=== PATIENT | female | born 1955 | race African-American/Black ===

== ENCOUNTER 2017-06-28 12:02 | Emergency (ER) | payer OTHER ==
[2017-06-28] MEDS: ACETAMINOPHEN 325 MG TAB PO (14:12)
[2017-06-28] MEDS: SODIUM CHLORIDE 0.9% 1L BAG IV* (14:12)
[2017-06-28 14:32] LABS: ADD MAN DIFF? NO
[2017-06-28 14:35] LABS: ABNORMAL IP MESSAGE 1; BASOPHIL # 0.1 10^3/ul (0.0-0.1); BASOPHILS % 1.5 % (0.0-2.0); EOSINOPHILS % 0.2 % (0.0-7.0); HEMOGLOBIN 7.1 g/dl (12.0-16.0); LYMPHOCYTES # 0.9 10^3/ul (0.8-2.9); LYMPHOCYTES % 19.7 % (15.0-51.0); MEAN CORPUSCULAR HGB CONC 27.3 g/dl (32.0-37.0); MEAN PLATELET VOLUME 10.3 fl (7.4-10.4); MONOCYTE # 0.7 10^3/ul (0.3-0.9); MONOCYTES % 15.3 % (0.0-11.0); NEUTROPHIL # 2.9 10^3/ul (1.6-7.5); NEUTROPHILS % 62.9 % (39.0-77.0); PLATELET COUNT 331 10^3/UL (140-415); RED BLOOD COUNT 3.94 10^6/ul (4.20-5.40); RED CELL DISTRIBUTION WIDTH 18.3 % (11.5-14.5)
[2017-06-28 14:35] LABS: WHITE BLOOD COUNT 4.6 10^3/ul (4.8-10.8)
[2017-06-28 14:38] LABS: POSITIVE DIFF @See below
[2017-06-28 14:51] LABS: LACTIC ACID 1.8 mmol/L (0.5-2.0)
[2017-06-28 14:54] LABS: ALANINE AMINOTRANSFERASE 35 IU/L (13-69); ALBUMIN 4.7 g/dl (3.3-4.9); ALBUMIN/GLOBULIN RATIO 1.17; ALKALINE PHOSPHATASE 99 IU/L (42-121); ANION GAP 20 (8-16); ASPARTATE AMINO TRANSFERASE 58 IU/L (15-46); BILIRUBIN,INDIRECT 0.2 mg/dl (0-1.1); BILIRUBIN,TOTAL 0.2 mg/dl (0.2-1.3); BLOOD UREA NITROGEN 14 mg/dl (7-20); CALCIUM 9.3 mg/dl (8.4-10.2); CARBON DIOXIDE 21 mmol/L (21-31); CHLORIDE 103 mmol/L (97-110); CREATININE 0.88 mg/dl (0.44-1.00); GLUCOSE 99 mg/dl (70-220); POTASSIUM 4.7 mmol/L (3.5-5.1); SODIUM 139 mmol/L (135-144); TOTAL PROTEIN 8.7 g/dl (6.1-8.1)
== END 2017-06-28 16:21 | disposition home or self-care (01) ==
LOC: FTE 12:02
DX: D64.9 Anemia, unspecified (principal); J11.1 Influenza due to unidentified influenza virus with other respiratory manifestations; F17.210 Nicotine dependence, cigarettes, uncomplicated
CPT/HCPCS: 36415; 71045; 80053; 83605; 85025; 87040; 87400; 99284-25

== ENCOUNTER 2017-11-13 10:58 | Emergency (ER) | payer OTHER ==
[2017-11-13 12:18] LABS: ADD MAN DIFF? NO
[2017-11-13 12:19] LABS: ABNORMAL IP MESSAGE 1; BASOPHIL # 0.1 10^3/ul (0.0-0.1); BASOPHILS % 0.7 % (0.0-2.0); EOSINOPHILS # 0.2 10^3/ul (0.0-0.5); EOSINOPHILS % 1.6 % (0.0-7.0); HEMATOCRIT 19.8 % (37.0-47.0); LYMPHOCYTES # 1.4 10^3/ul (0.8-2.9); MEAN CORPUSCULAR HEMOGLOBIN 15.5 pg (29.0-33.0); MEAN CORPUSCULAR HGB CONC 24.2 g/dl (32.0-37.0); MEAN CORPUSCULAR VOLUME 64.1 fl (82.0-101.0); MEAN PLATELET VOLUME 8.9 fl (7.4-10.4); MONOCYTE # 0.7 10^3/ul (0.3-0.9); MONOCYTES % 7.7 % (0.0-11.0); NEUTROPHIL # 6.8 10^3/ul (1.6-7.5); NEUTROPHILS % 74.5 % (39.0-77.0); NUCLEATED RED BLOOD CELLS # 0.1 10^3/ul (0.0-0.0); NUCLEATED RED BLOOD CELLS% 0.9 /100WBC (0.0-0.0); PLATELET COUNT 990 10^3/UL (140-415); RED BLOOD COUNT 3.09 10^6/ul (4.20-5.40)
[2017-11-13 12:19] LABS: WHITE BLOOD COUNT 9.1 10^3/ul (4.8-10.8)
[2017-11-13 12:21] LABS: POSITIVE DIFF @See below
[2017-11-13 12:23] LABS: HEMOGLOBIN 4.8 g/dl (12.0-16.0)
[2017-11-13 12:24] LABS: PATH REVIEW? YES
[2017-11-13] MEDS: SOD CHLORIDE 0.9% 250 ML IV (12:31)
[2017-11-13 12:44] LABS: INR 0.95; PROTIME 12.8 Sec (11.9-14.9)
[2017-11-13 12:45] LABS: PARTIAL THROMBOPLASTIN TIME 25.2 Sec (25.0-35.0)
[2017-11-13 13:07] LABS: ALANINE AMINOTRANSFERASE 7 IU/L (13-69); ALBUMIN 3.8 g/dl (3.3-4.9); ALBUMIN/GLOBULIN RATIO 1.15; ALKALINE PHOSPHATASE 74 IU/L (42-121); ANION GAP 17 (8-16); ASPARTATE AMINO TRANSFERASE 23 IU/L (15-46); BILIRUBIN,INDIRECT 0.2 mg/dl (0-1.1); BILIRUBIN,TOTAL 0.2 mg/dl (0.2-1.3); BLOOD UREA NITROGEN 10 mg/dl (7-20); CALCIUM 9.2 mg/dl (8.4-10.2); CARBON DIOXIDE 23 mmol/L (21-31); CHLORIDE 105 mmol/L (97-110); CREATININE 0.76 mg/dl (0.44-1.00); GLUCOSE 165 mg/dl (70-220); POTASSIUM 3.6 mmol/L (3.5-5.1); SODIUM 141 mmol/L (135-144); TOTAL PROTEIN 7.1 g/dl (6.1-8.1)
[2017-11-13 14:13] LABS: IMMEDIATE SPIN CROSSMATCH 1 2
== END 2017-11-13 18:18 | disposition short-term general hospital (02) ==
LOC: E/R 18:18
PROVIDERS: Pediatrics Neonatal-Perinatal Medicine
DX: D64.9 Anemia, unspecified (principal); D47.3 Essential (hemorrhagic) thrombocythemia; E11.9 Type 2 diabetes mellitus without complications
CPT/HCPCS: 36415; 36430; 80053; 85025; 85610; 85730; 86644; 86850; 86900; 86901; 86920; 99285-25